=== PATIENT | female | born 1975 | race Caucasian/White ===

== ENCOUNTER 2022-06-01 18:04 | Emergency (ER) | payer OTHER ==
[~2022-06-01] VITALS: Ht 167.6 cm; Wt 89.3 kg
[~2022-06-01 18:04] MED LIST: ESTRADIOL1 MG PO; NORCO 5-325 TA1 EACH PO; PREMPHASE 0.621 EACH PO; TOPAMAX100 MG PO; TOPAMAX25 MG PO; ZITHROMAX500 MG PO
--- OUTSIDE RECORDS SUMMARY | 2022-06-01 18:06 | XMS ---
PreManage Notification: LYNDA BURK Security Herb Counselor Events No recent Security Events currently on file CRITERIA MET - PDM CARE PROVIDERS -, [facility]- Dentist: Out Patient Therapist [facility] PHONE: [phone] Patrice has no Care Guidelines for this patient. EBrandon VISIT COUNT (12 MO.) 7 [facility] LENA Robison TOTAL 8 NOTE: Visits indicate total known visits. ED/UCC VISIT TRACKING (12 MO.) 06/01/2022 18:05 LENA Pulido TYPE: Emergency COMPLAINT: - URINE PROBLEM 04/23/2022 16:36 [facility] Lakeisha HERBERT TYPE: Emergency DIAGNOSES: - hives, cough, sob - Unspecified asthma with (acute) exacerbation - Urticaria, unspecified - Urticaria 04/04/2022 18:46 [facility] Lakeisha HERBERT TYPE: Emergency DIAGNOSES: - Knee Pain - Pain in right hip - Pain in right ankle and joints of right foot - Rt leg pain - Pain in right foot 03/22/2022 23:59 [facility] Lakeisha HERBERT TYPE: Emergency DIAGNOSES: - Effusion, right knee - Leg Injury - Sprain of unspecified site of right knee, initial encounter - Fall - Leg Pain [facility]21 [facility] DIAGNOSES: - Unspecified abdominal pain - Abdominal Pain - Procedure and treatment not carried out due to patient leaving prior to being seen by health care provider - Rt side pain 08/15/2021 17[facility]45 [facility] DIAGNOSES: - eye swelling - Hordeolum externum right upper eyelid - Eye Problem [facility] DIAGNOSES: - Abdominal Pain - abd pain - Right upper quadrant pain 06/21/2021 10:[address] [facility]ana HERBERT TYPE: Emergency DIAGNOSES: - Abdominal Pain - Epigastric pain INPATIENT VISIT TRACKING (12 MO.) No inpatient visits to display in this time frame [email or web address]
[2022-06-01] MEDS ORDERED: OMEPRAZOLE20 MG PO (21:16)
[2022-06-01] MEDS ORDERED: TRIAMCINOLONE A15 G1 TOP (21:16)
[2022-06-01] MEDS ORDERED: GABAPENTIN300 MG PO (21:16)
[2022-06-01] MEDS ORDERED: HYDROXYZINE HCL25 MG PO (21:17)
[2022-06-01] MEDS ORDERED: PYRIDIUM200 MG PO (21:25)
[2022-06-01] MEDS ORDERED: HYDROCODON-ACE1 EA10 PO (21:25)
== END 2022-06-01 21:42 | disposition home or self-care (01) ==
LOC: ED 18:04
DX: N34.2 Other urethritis (principal); F17.200 Nicotine dependence, unspecified, uncomplicated; Z88.2 Allergy status to sulfonamides; Z88.1 Allergy status to other antibiotic agents; Z88.5 Allergy status to narcotic agent; Z79.899 Other long term (current) drug therapy
CPT/HCPCS: 81001; 99283; A9270